=== PATIENT | female | born 2000 | race African-American/Black ===

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

== ENCOUNTER 2022-04-24 08:49 | Outpatient (CLI) | payer BC | END 2022-04-24 18:57 | disposition home or self-care (01) | LOC: US 08:49 | PROVIDERS: ATTEND Internal Medicine | DX: R11.0 Nausea (principal); R10.9 Unspecified abdominal pain; R10.13 Epigastric pain ==

== ENCOUNTER 2022-05-14 08:10 | Outpatient (CLI) | payer BC | END 2022-05-14 19:21 | disposition home or self-care (01) | LOC: NM 08:10 | PROVIDERS: ATTEND Internal Medicine | DX: R10.84 Generalized abdominal pain (principal); M06.8A Other specified rheumatoid arthritis, other specified site; R10.31 Right lower quadrant pain; R10.11 Right upper quadrant pain | CPT/HCPCS: A9537 ==

== ENCOUNTER 2022-07-27 08:07 | Outpatient (CLI) | payer BC | END 2022-07-27 19:30 | disposition home or self-care (01) | LOC: CT 08:07 | PROVIDERS: ATTEND Internal Medicine | DX: R55 Syncope and collapse (principal); R51.9 Headache, unspecified; R42 Dizziness and giddiness; F41.1 Generalized anxiety disorder; M08.3 Juvenile rheumatoid polyarthritis (seronegative); M79.10 Myalgia, unspecified site ==

== ENCOUNTER 2023-02-07 12:07 | Outpatient (CLI) | payer BC | END 2023-02-07 19:04 | disposition home or self-care (01) | LOC: CT 12:07 | PROVIDERS: ATTEND Nurse Practitioner Family | DX: R10.9 Unspecified abdominal pain (principal) | CPT/HCPCS: Q9963 ==